=== PATIENT | male | born 1990 | race Caucasian/White ===

== ENCOUNTER 2022-11-02 16:33 | Emergency (ER) | payer MEDICAID, OTHER ==
[~2022-11-02] VITALS: Ht 177.8 cm; Wt 91.0 kg
[2022-11-02 17:06] LABS: CLARITY URINE CLEAR (CLEAR); COLOR URINE YELLOW (YELLOW); KETONES URINE NEGATIVE (NEGATIVE); LEUKOCYTE ESTERASE URINE NEGATIVE (NEGATIVE); NITRITE URINE NEGATIVE (NEGATIVE); OCCULT BLOOD URINE NEGATIVE (NEGATIVE); PH URINE 5.5 (4.5-8.0); PROTEIN URINE NEGATIVE (NEGATIVE); SPECIFIC GRAVITY URINE 1.017 (1.005-1.030); UROBILINOGEN URINE 0.2 E.U./dL (0.2-1.0)
[2022-11-02 19:02] VITALS: BP 122/78
== END 2022-11-02 19:04 | disposition home or self-care (01) ==
LOC: ER 16:33
DX: N43.3 Hydrocele, unspecified (principal)
CPT/HCPCS: 76870; 81003; 93976; 99284